=== PATIENT | male | born 1990 | race African-American/Black ===

== ENCOUNTER 2016-11-10 03:41 | Emergency (ER) | payer OTHER ==
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
== END 2016-11-10 06:08 | disposition home or self-care (01) ==
LOC: CED 03:41
DX: S13.4XXA Sprain of ligaments of cervical spine, initial encounter (principal); V43.52XA Car driver injured in collision with other type car in traffic accident, initial encounter; Y92.410 Unspecified street and highway as the place of occurrence of the external cause
CPT/HCPCS: 72040; 99284